=== PATIENT | female | born 1975 | race American Indian/Alaskan Native ===

== ENCOUNTER 2021-01-15 11:24 | Emergency (ER) | payer OTHER ==
[~2021-01-15] VITALS: Ht 157.5 cm; Wt 75.3 kg
[2021-01-15] MEDS ORDERED: VAZALORE81 MG PO (11:38)
[2021-01-15] MEDS ORDERED: KETO10TA2 PO (13:30)
[2021-01-15] MEDS ORDERED: ORPHENADRINE C100 MG PO (13:30)
[2021-01-15] MEDS ORDERED: ULTRAM50 MG PO (13:30)
== END 2021-01-15 14:31 ==
LOC: ER 11:24
DX: S23.9XXA Sprain of unspecified parts of thorax, initial encounter (principal); Y93.73 Activity, racquet and hand sports; Y92.832 Beach as the place of occurrence of the external cause

== ENCOUNTER 2023-08-21 10:49 | Outpatient (CLI) | payer OTHER ==
[~2023-08-21 10:49] MED LIST: KETO10TA2 PO; ORPHENADRINE C100 MG PO; ULTRAM50 MG PO; VAZALORE81 MG PO
== END 2023-08-21 10:51 | disposition home or self-care (01) ==
LOC: SONOGRAMA 10:49
PROVIDERS: ATTEND Pathology Anatomic Pathology & Clinical Pathology
DX: D34 Benign neoplasm of thyroid gland (principal); E04.1 Nontoxic single thyroid nodule

== ENCOUNTER 2023-10-01 15:31 | Emergency (ER) | payer OTHER ==
[~2023-10-01] VITALS: Ht 154.9 cm; Wt 70.3 kg
[2023-10-01] MEDS ORDERED: LIPITOR20 MG PO (15:53)
[2023-10-01] MEDS ORDERED: ZOLOFT25 MG PO (15:54)
[2023-10-01] MEDS ORDERED: MEPERIDINE HCL/PF 50 MG/ML VIAL IV ONE (16:45)
[2023-10-01] MEDS ORDERED: ORPHENADRINE CITRATE 30 MG/ML AMPUL IM ONE (16:45)
[2023-10-01] MEDS ORDERED: DEXAMETHASONE SODIUM PHOSP/PF 10 MG/ML VIAL IV ONE (16:45)
[2023-10-01] MEDS ORDERED: KETOROLAC TROMETHAMINE 15 MG VIAL IV STA (21:04)
[2023-10-01] MEDS ORDERED: CELEBREX200MG PO (22:37)
[2023-10-01] MEDS ORDERED: METAXALONE800 MG PO (22:37)
[2023-10-01] MEDS ORDERED: TRAM1TAB98 PO (22:37)
[2023-10-01] MEDS ORDERED: MEDROLPACK PO (22:37)
[2023-10-01] MEDS ORDERED: PROMETHAZINE HCL 25 MG/ML AMPUL IM STA (23:30)
[2023-10-01] MEDS ORDERED: MEPERIDINE HCL/PF 25 MG/ML VIAL IM STA (23:31)
== END 2023-10-02 00:06 | disposition home or self-care (01) ==
LOC: ER 15:31
DX: S23.3XXA Sprain of ligaments of thoracic spine, initial encounter (principal); X58.XXXA Exposure to other specified factors, initial encounter; Y93.89 Activity, other specified; Y92.018 Other place in single-family (private) house as the place of occurrence of the external cause; Y99.9 Unspecified external cause status; Z88.8 Allergy status to other drugs, medicaments and biological substances

== ENCOUNTER 2024-06-20 14:02 | Outpatient (CLI) | payer OTHER ==
[~2024-06-20 14:02] MED LIST changes: +CELEBREX200MG PO; +LIPITOR20 MG PO; +MEDROLPACK PO; +METAXALONE800 MG PO; +TRAM1TAB98 PO; +ZOLOFT25 MG PO
== END 2024-06-20 14:04 | disposition home or self-care (01) ==
LOC: RAD 14:02
DX: G89.11 Acute pain due to trauma (principal)